=== PATIENT | male | born 1945 | race Caucasian/White ===

== ENCOUNTER 2018-08-08 19:32 | Inpatient (IN) ==
[2018-08-08] MEDS ORDERED: REGLAN IV ONE (19:38)
[2018-08-08] MEDS ORDERED: NS 1,000 ML IV ONE (19:38)
[2018-08-08 21:02] LABS: BASO# 0.05 X1000 (0.0-0.2); BASO% 0.4 % (0.0-0.8); EOS# 0.12 X1000 (0.0-0.7); HEMATOCRIT 42.3 % (42.0-52.0); HEMOGLOBIN 13.8 g/dL (14.0-18.0); IMM GRAN# 0.05 X1000 (0.0-0.04); IMM GRAN% 0.4 % (0.0-0.5); LYMPH# 1.11 X1000 (1.2-3.4); LYMPH% 9.4 % (20.5-51.1); MCH 26.7 PG (27-31); MCHC 32.6 g/dL (33-37); MONO% 7.6 % (1.7-9.3); MPV 10.3 FL (7.4-10.4); NEUT# 9.63 X1000 (1.4-6.5); NEUT% 81.2 % (42.2-75.2); PLT 292 X1000 (130-400); RBC 5.16 XMIL (4.7-6.1); RDW 14.7 % (11.5-14.5); WBC 11.86 X1000 (4.8-10.8)
--- NOTE | 2018-08-08 21:09 | Diag Imaging Result Doc PS360 ---
EXAM: CHEST-PORTABLE INDICATION: weak TECHNIQUE: One view COMPARISON: 01/30/2010 FINDINGS: The lungs are grossly clear. There is no discrete pleural fluid collection or pneumothorax. There has been interval placement of a left-sided pacemaker. The cardiomediastinal silhouette and central vasculature are grossly unremarkable, otherwise. IMPRESSION: No evidence of acute pathology by plain radiograph. Electronically signed by Aydin Pineda 08/08/2018 9:06 PM
[2018-08-08 21:26] LABS: AGAP 13; ALB/GLOB RATIO 1.3; ALBUMIN 4.2 g/dL (3.5-5.0); ALKALINE PHOSPHATASE 77 U/L (32-122); BUN 15 mg/dL (8-22); CALCIUM 9.3 mg/dL (8.8-10.2); CHLORIDE 102 mmol/L (98-107); CK PROFILE 98 U/L (24-204); COSMO 285; CREATININE 0.7 mg/dL (0.7-1.2); ESTIMATED GFR > 60; GLUCOSE 220 mg/dL (70-104); GOT 13 U/L (10-34); GPT 12 U/L (10-44); LIPASE 20 U/L (13-60); SODIUM 139 mmol/L (136-145); TCO2 24 mmol/L (25-35); TOTAL BILIRUBIN 0.52 mg/dL (0.20-1.00); TOTAL PROTEIN 7.4 g/dL (6.3-8.3)
[2018-08-08 21:29] LABS: URINE SOURCE CLEAN CATCH
[2018-08-08 21:43] LABS: BILIRUBIN URINE NEGATIVE (NEGATIVE); BLOOD URINE NEGATIVE (NEGATIVE); COLOR YELLOW; GLUCOSE URINE TRACE mg/dL (NEGATIVE); KETONE URINE 40 mg/dL (NEGATIVE); LEUKOCYTES URINE TRACE (NEGATIVE); NITRITE URINE NEGATIVE (NEGATIVE); PROTEIN URINE 30 mg/dL (NEGATIVE); SP GRAVITY URINE 1.028; TURBIDITY URINE CLEAR (CLEAR); UROBILINOGEN URINE NORMAL (NORMAL)
[2018-08-08 21:44] LABS: UR EPITHELIAL CELLS <10 /HPF (<10); URINE BACTERIA NEGATIVE /HPF; URINE RBC <10 /HPF (<10); URINE WBC <10 /HPF (<10)
--- NOTE | 2018-08-08 22:05 | HISTORY AND PHYSICAL ---
PRIMARY CARE PHYSICIAN: Dr. Vamshi Rutherford. CHIEF COMPLAINT: Profound weakness and near syncope. HISTORY OF PRESENT ILLNESS: A 72-year-old, white male, with a complicated past medical history, who presents for evaluation of above-mentioned symptoms. Current history of present illness began at approximately 5:30. At that time, patient was finishing mowing his yard. The patient states that he did not over exert himself as he was using a riding mower. The patient drank some water and some Gatorade. Upon arrival in his house, he developed visual abnormalities followed by a near syncopal episode. This was soon followed by abdominal pain with intractable nausea and vomiting. He noted numbness and tingling of bilateral upper extremities and bilateral lower extremities. Because of the severity of his symptoms, EMS was contacted. Upon their arrival, blood sugar was noted to be 143. Heart rate was noted to be 73. The patient was transferred to the hospital for full evaluation and management. Upon arrival, patient was noted to be hypothermic with a temperature of 95.0. He was ill appearing. He was aggressively volume resuscitated with IV fluids. IV Reglan was provided for nausea. Upon my arrival, patient states he continued to feel poorly, but did have improvement. He will be admitted to the hospital for full evaluation and management of a near syncopal episode with profound nausea and vomiting and weakness. Of note, patient has experienced urinary frequency and dysuria, but no hematuria or pyuria. He has had chills, but no fevers. He denies current cardiac symptoms including chest pains, palpitations, or shortness of breath. His last bowel movement was this morning and reported as normal. He denies hematochezia or melena. PAST MEDICAL HISTORY: 1. Abnormal electrocardiogram with longstanding right bundle branch block/bifascicular block, paroxysmal atrial fibrillation, and bradycardia. 2. Multiple actinic keratoses and a history of a basal cell carcinoma to the right face. 3. Status post appendectomy associated with diverticular rupture in 1994. 4. Diabetic right foot ulcer, originally diagnosed in 2008. He is status post surgical interventions in 2008 and 2013. He currently presents in a cast and is followed by Dr. King and Dr. Mckeon. 5. Type 2 diabetes. 6. History of diverticulitis with associated rupture requiring partial colon resection in 1992. 7. Hypertension. 8. History of external hemorrhoids. 9. Hyperlipidemia. 10. Long-term anticoagulation secondary to atrial fibrillation. 11. History of nephrolithiasis. 12. Obstructive sleep apnea. 13. Left-sided rotator cuff repair in 2002. 14. Bilateral osteoarthritis. 15. Paroxysmal atrial fibrillation. 16. Sick sinus syndrome status post dual-chamber pacemaker implantation in 2018. CURRENT MEDICATIONS: 1. Coreg 25 mg 1/2 tablet twice a day. 2. Januvia 100 mg daily. 3. Metformin 1000 mg 1/2 tablet 3 times daily. 4. Multaq 400 mg twice daily. 5. Pradaxa 150 mg twice daily. 6. Rosuvastatin 40 mg at bedtime. 7. Telmisartan 80 mg daily. ALLERGIES: 1. THE PATIENT STATES HE IS ALLERGIC TO ANDROGEL WHICH CAUSES URINARY RETENTION. 2. CODEINE WHICH CAUSES NAUSEA, VOMITING, AND DIARRHEA. 3. IBUPROFEN WHICH CAUSES SWELLING OF THE LIPS. 4. INVOKANA WHICH CAUSES GI UPSET. 5. MORPHINE WHICH CAUSES FACIAL SWELLING. SOCIAL HISTORY: Patient denies tobacco. He has approximately 1 drink of alcohol per week. He denies illicit drug use. 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 He enjoys fishing, hunting, working in the yard, and reading. He exercises intermittently. REVIEW OF SYSTEMS: A 12 point review of systems was performed. Pertinent positives and negatives are noted in history of present illness. PHYSICAL EXAMINATION: VITAL SIGNS: Temperature 95. Heart rate 63, respirations 18, blood pressure is 193/79. GENERAL: Ill-appearing. No acute distress. HEENT: Normocephalic, atraumatic. Pupils equal, round, reactive to light. Extraocular muscles intact. Sclerae anicteric. Sneads conjunctivae. Oral and nasopharynx clear without exudate. NECK: Supple. No lymphadenopathy. No thyromegaly. No bruits auscultated. CARDIOVASCULAR: Regular rate and rhythm. No significant murmurs, rubs, or gallops. PULMONARY: Clear to auscultation bilaterally. ABDOMEN: Soft, nontender, nondistended. Positive bowel sounds. EXTREMITIES: Moves all extremities well. No significant clubbing, cyanosis, or edema. NEUROLOGIC: Cranial nerves 2-12 grossly intact. Motor and sensory grossly intact. PSYCHOLOGIC: Examination is appropriate. LABORATORY DATA: White blood cell count 11.86, hemoglobin 13.8, hematocrit 42.3, platelet count 292,000. Sodium 139, potassium 5.0, chloride 102, bicarb 24, BUN 15, creatinine 0.7, glucose 220. Calcium 9.3, total bilirubin 0.52, total protein 7.4, albumin 4.2, alkaline phosphatase 77, AST 13, ALT 12. CK total 98. Troponin less than 0.010. Lipase 20. Urinalysis is pending at the time of admission. ASSESSMENT AND PLAN: A 72-year-old white male with a very complicated past medical history presents for evaluation of acute onset nausea, vomiting, and a near syncopal episode. Differential diagnosis is quite broad. In the setting of intractable abdominal pain, a transient small bowel obstruction associated with previous surgical interventions is to be considered. Additionally, urinary retention, urinary pathology will be evaluated. An enteritis is to be considered. Underlying arrhythmia also is on the differential. The patient will be admitted to the hospital for full evaluation and management of this condition. 1. Admit to General Medicine. 2. Intractable nausea and vomiting with associated abdominal discomfort-each of these has improved while in the emergency department. We will continue aggressive IV hydration. We will start patient on as needed IV Reglan. We will resume diet once able. 3. Profound weakness with a near syncopal episode-unfortunately, patient had a near syncopal episode associated with this event. The question is raised whether this was a vasovagal event associated with his abdominal discomfort or if this was a primary cardiac arrhythmia. Patient does have a prolonged cardiac history. We will follow patient on telemetry. We will continue IV fluids as described above. We will follow this closely. 4. History of diabetes with associated diabetic foot ulcer-we will continue patient's Januvia. We will hold metformin for now. We will cover patient with sliding scale insulin. We will convert patient to Bactrim and Augmentin to Zosyn therapy while hospitalized for his diabetic foot ulcer. 5. Urinary frequency-we will check a urinalysis. We will ask staff to check a postvoid residual. We will consider adding Flomax therapy while hospitalized. 6. Hypertension-patient's blood pressure is elevated at present time. This likely is reactive from his acute illness. We will continue his home regimen for now. 7. Paroxysmal atrial fibrillation-we will continue his home regimen. 8. Anticoagulation-we will continue patient on Pradaxa therapy. 9. Fluid, electrolytes, nutrition. We will monitor electrolytes. Normal saline at 75 mL an hour. Diabetic diet. 10. Prophylaxis. Patient will be continued on Pradaxa therapy. cc: Vamshi Rutherford MD
[2018-08-08] MEDS ORDERED: REGLAN IV PRN (22:55)
[2018-08-08] MEDS ORDERED: TYLENOL PO PRN (22:55)
[2018-08-08] MEDS: COREG PO SCH (23:44)
[2018-08-08] MEDS: NS 1,000 ML IV SCH (23:55)
[2018-08-08] MEDS: ZOSYN 3.375 GM in NS 50 ML IV SCH (23:56)
[2018-08-09] MEDS: MULTAQ PO SCH ×3 (00:07→21:10)
[2018-08-09] MEDS: PRADAXA PO SCH ×3 (00:08→21:10)
[2018-08-09] MEDS: ZOSYN 3.375 GM in NS 50 ML IV SCH ×5 (04:43→22:41)
[2018-08-09 05:51] LABS: BASO# 0.02 X1000 (0.0-0.2); BASO% 0.2 % (0.0-0.8); EOS# 0.04 X1000 (0.0-0.7); EOS% 0.4 % (0.0-10.0); HEMATOCRIT 38.2 % (42.0-52.0); HEMOGLOBIN 12.5 g/dL (14.0-18.0); IMM GRAN# 0.03 X1000 (0.0-0.04); IMM GRAN% 0.3 % (0.0-0.5); LYMPH# 2.01 X1000 (1.2-3.4); LYMPH% 19.6 % (20.5-51.1); MCH 27.2 PG (27-31); MCHC 32.7 g/dL (33-37); MCV 83.2 FL (81-99); MONO# 0.93 X1000 (0.11-0.59); MONO% 9.1 % (1.7-9.3); MPV 10.3 FL (7.4-10.4); NEUT% 70.4 % (42.2-75.2); PLT 268 X1000 (130-400); RBC 4.59 XMIL (4.7-6.1); RDW 14.8 % (11.5-14.5); WBC 10.23 X1000 (4.8-10.8)
[2018-08-09] MEDS: HUMALOG SUBQ SCH ×3 (06:07→21:10)
[2018-08-09 06:11] LABS: AGAP 11; ALBUMIN 3.3 g/dL (3.5-5.0); ALKALINE PHOSPHATASE 65 U/L (32-122); BUN 13 mg/dL (8-22); CALCIUM 8.5 mg/dL (8.8-10.2); CHLORIDE 104 mmol/L (98-107); COSMO 279; CREATININE 0.6 mg/dL (0.7-1.2); ESTIMATED GFR > 60; GLUCOSE 126 mg/dL (70-104); GOT 11 U/L (10-34); GPT 10 U/L (10-44); POTASSIUM 4.1 mmol/L (3.5-5.1); SODIUM 139 mmol/L (136-145); TCO2 24 mmol/L (25-35); TOTAL BILIRUBIN 0.49 mg/dL (0.20-1.00); TOTAL PROTEIN 6.6 g/dL (6.3-8.3)
--- NOTE | 2018-08-09 08:27 | EKG Report ---
Test Performed on : 08/08/2018 7:39:42 PM Test Reason : ED. NO EKG ORDER FOR MUSE Blood Pressure : / mmHG Vent. Rate : 079 BPM Atrial Rate : 078 BPM P-R Int : 000 ms QRS Dur : 144 ms QT Int : 440 ms P-R-T Axes : 000 -02 002 degrees QTc Int : 504 ms Wide QRS rhythm. Right bundle branch block Abnormal ECG When compared with ECG of 02-OCT-2012 00:47, Wide QRS rhythm. has replaced Sinus rhythm. Unconfirmed Result
[2018-08-09] MEDS: MICARDIS PO SCH (08:59)
[2018-08-09] MEDS: COREG PO SCH ×2 (08:59→21:10)
[2018-08-09] MEDS: JANUVIA PO SCH (08:59)
--- NOTE | 2018-08-09 12:50 | CONSULTATION ---
DATE OF CONSULTATION: 08/09/2018 IMPRESSION: 1. Episode of near syncope associated with upper abdominal discomfort, nausea and diaphoresis lasting at least an hour. ECG and serial cardiac enzymes benign. Consider possible vasovagal episode. However, patient has history of coronary atherosclerosis managed medically. Multiple risk factors for coronary artery disease, and episode of nonsustained ventricular tachycardia last month making reassessment of coronary disease important. 2. Atherosclerotic coronary disease. Last cardiac catheterization study in July of 2015 indicated mild left anterior descending coronary atherosclerosis, moderate stenosis in 2nd diagonal which was small vessel, moderate stenosis and small posterior lateral branch and mild coronary atherosclerosis in proximal right coronary. Left ventricular ejection fraction normal. Stress myocardial perfusion study early 2017-. 3. Atrial arrhythmias with atrial fibrillation and atypical flutter. Patient is status post previous ablation/flash pulmonary vein isolation procedure in 2009. He has had several cardioversions. He continues in atrial paced rhythm on Multaq, and as previous poor tolerance of amiodarone. 4. Sick sinus syndrome. Patient is status post dual-chamber pacemaker with [employer] device. 5. Valvular heart disease with mild aortic stenosis. Previous echocardiography last year. 6. Hypertensive cardiovascular disease with chronic diastolic dysfunction. 7. Diabetes mellitus. 8. Right foot infection with apparent associated osteomyelitis. This is an ongoing issue. 9. Obstructive sleep apnea. RECOMMENDATIONS: 1. Echocardiography. 2. Reassess coronary disease with Lexiscan myocardial perfusion imaging. HISTORY: This 72-year-old white male with past history of coronary atherosclerosis managed medically as outlined above, atrial arrhythmias including paroxysmal atrial fibrillation and atypical atrial flutter, sinus node dysfunction requiring permanent pacemaker with [employer] device, hypertensive cardiovascular disease with diastolic dysfunction, diabetes mellitus, obstructive sleep apnea, and ongoing right foot infection with apparent osteomyelitis. She was admitted yesterday evening after near syncopal episode. He has a cast on his right lower extremity and foot with an opening where he has a wound that is slowly healing. Apparently, he had osteomyelitis and so far he has avoided amputation. Yesterday afternoon around 3:00 in the afternoon, he mowed his yard with a riding mower. Following this, he did some blowing off of his property with a leaf blower. He indicates that he puts a garbage bag on his right distal lower extremity when he does this activity. He was fairly cool yesterday, and he does not feel like he overheated. He had some Gatorade afterwards, and on walking across the patio to his house he developed lightheadedness, nausea and upper abdominal discomfort, and some vomiting. Symptoms are rather persistent. There was no chest pain or palpitations. EMS was summoned and brought him to the hospital by ambulance. His symptoms had not totally abated by the time he arrived here, and improved with treatment in the emergency room. All in all, the symptoms lasted perhaps an hour. He has not had any chest pain. He relates that overall he has been feeling fairly well. ECG and serial cardiac enzymes have been benign. PAST MEDICAL HISTORY: 1. Atherosclerotic coronary disease as outlined above managed medically. 2. Paroxysmal atrial arrhythmias including paroxysmal atrial fibrillation and atypical atrial flutter. Patient is status post previous pulmonary vein isolation procedure. He has had several cardioversions. He continues in atrial paced rhythm. 3. Sinus node dysfunction requiring permanent pacemaker with [employer] device. 4. Hypertensive cardiovascular disease with left ventricular diastolic dysfunction. 5. Diabetes mellitus type 2. 6. Diabetic right foot ulcer with what sounds like associated osteomyelitis. 7. Diverticular disease of the colon. 8. Nephrolithiasis. 9. Obstructive sleep apnea PAST SURGICAL HISTORY: Partial colon resection for diverticulitis and associated rupture, left- sided rotator cuff repair, and permanent pacemaker. He is also status post several surgical interventions on his diabetic foot ulcer on the right foot. ALLERGIES: He is allergic or intolerant to ibuprofen, licorice, morphine and warfarin. The patient also relates that he had problems tolerating amiodarone in the past, and this was withdrawn. He relates associated abnormal liver function studies with amiodarone. MEDICATIONS: Current medications as listed. 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 He does not smoke. He drinks infrequent alcoholic beverage. FAMILY HISTORY: Negative for premature coronary disease. REVIEW OF SYSTEMS: Pulmonary: Noncontributory beyond history of present illness. Gastrointestinal: Noncontributory beyond history of present illness. Constitutional: Noncontributory beyond history of present illness. Remainder of review of systems noncontributory beyond history of present illness with 14 total systems reviewed. PHYSICAL EXAMINATION: General: This is a overweight older white male in no distress. Vital signs: Blood pressure 129/66, heart rate 64, and oxygen saturation 98% on room air. HEENT: Extraocular movements intact. Mucous membranes are moist. Neck: Supple without jugular venous distention. No carotid bruits. Chest: Clear to auscultation bilaterally. Cardiac: Exam reveals a regular rate and rhythm with a grade 1-2/6 systolic murmur at the left ventricular apex. No gallop could be appreciated. Abdomen: Soft and nontender. Bowel sounds are normal. Extremities: Without edema. Neurologic: Exam reveals him to be alert and fully oriented. Speech is fluent. Moves all 4 extremities equally well. Skin: Warm and dry. Psychiatric: Reveals mood to be appropriate. PERTINENT DATA: Twelve lead EKG demonstrates sinus rhythm atrial paced rhythm and right bundle branch block. Twelve lead EKG demonstrates what appears to be atrial paced rhythm and right bundle branch block. LABORATORY DATA: Includes white blood cell count 10.23, hematocrit 38.2, hemoglobin 12.5, and platelet count 268,000. Sodium 139, potassium 4.1, chloride 104, carbon dioxide 24, BUN 13, and creatinine 0.6. Initial troponin less than 0.01. Followup troponin pending. CPK 98. Interrogation of pacemaker demonstrates no arrhythmias with yesterday's event. However, patient did manifest an episode of nonsustained ventricular tachycardia in the last 30 days. cc: MD Vamshi Salas MD
[2018-08-09] MEDS: NS 1,000 ML IV SCH (16:08)
--- NOTE | 2018-08-09 16:38 | ECHO REPORT ---
ORDER DATE: 08/09/2018 INTERPRETING PHYSICIAN: Dr. Mcfarland CLINICAL INDICATIONS: Near syncope. Pacemaker. M-MODE MEASUREMENTS: Left ventricle end diastole: 6.7 cm. Left ventricle end systole: 5.3 cm. Posterior wall: 0.8 cm. Interventricular septum: 0.8 cm. Left atrium: 3.7 cm. Aortic diameter: 3.3 cm. SUMMARY OF 2-DIMENSIONAL IMAGIN. The left ventricular systolic function appears to be normal, estimated at 55%. No wall motion abnormality noted. 2. The right ventricle appears to be normal. 3. The left atrium is moderately dilated. 4. The tricuspid valve shows mild degree of regurgitation. 5. Pulmonary pressure is estimated at 27 mmHg. The pulmonic valve is unremarkable. 6. The mitral valve looks grossly normal. Color flow mapping indicates mild degree of regurgitation. 7. Pulsed wave Doppler of mitral inflow shows single filling wave. The patient is in atrial fibrillation. 8. Tissue Doppler of septal and lateral mitral annulus shows normal velocity of the annulus at about 6 1/2 cm. 9. Diastolic function cannot be properly evaluated in this case because of the patient seemingly being in atrial fibrillation. 10.The aortic valve is calcified and it shows restricted opening. Maximum gradient across the valve is 25 mmHg, mean gradient is 13 mmHg. That would be consistent with a mild degree of aortic stenosis. 11.There is no pericardial effusion, no mass, and no thrombus. 12.There is questionable hypokinesis of the basal portion of the inferior wall. Clinical correlation is recommended. cc: MD Dao Garcia MD Scott A. Matthews, MD
[2018-08-09] MEDS ORDERED: CRESTOR PO SCH (21:00)
[2018-08-09] MEDS ORDERED: NS 1,000 ML IV SCH (22:10)
--- NOTE | 2018-08-09 22:28 | PROGRESS NOTE ---
DATE: 08/09/2018 SUBJECTIVE: This morning, upon my arrival, the patient states he continued to demonstrate improvement. He was, however, not back to his baseline. Because of his near syncopal episode and significant cardiac history, Cardiology was consulted. An echocardiogram was performed. Resting images were performed. Stress images are scheduled for tomorrow. This evening, upon my arrival, the patient states he had experienced further improvement. His abdominal discomfort has resolved. He has experienced no further episodes of nausea and vomiting. He is tolerating p.o. He continues to have some weakness; however, this has improved from this morning. OBJECTIVE: T-max 98.2 degrees, heart rate 63 to 98, respirations 14 to 32, blood pressure 106 to 228/62 to 102.General: Well nourished, well developed, in no acute distress. Cardiovascular: Irregularly irregular. No significant murmurs, rubs, or gallops. Pulmonary: Clear to auscultation bilaterally. Abdomen: Soft, nontender, nondistended. Positive bowel sounds. Extremities: Moves all extremities well. No significant clubbing, cyanosis, or edema. Dermatologic: Evaluation reveals no evidence of rash. LABORATORY DATA: White blood cell count 10.23, hemoglobin 12.5, hematocrit 38.2, platelet counts 268,000. Sodium 138, potassium 4.1 chloride 104, bicarb 24, BUN 13, creatinine 0.6, glucose 126, calcium 8.5. Total bilirubin 0.49. Total protein 6.6, albumin 3.3, alkaline phosphatase 65, AST 11, ALT 10. ASSESSMENT AND PLAN: 1. Intractable nausea and vomiting with associated abdominal discomfort - As above, the patient has achieved improvement. The question is raised as to the etiology. We will rule out cardiac etiology with stress testing in the morning. Symptoms have improved considerably. We will remain aware that this may be secondary to a vasovagal event in the setting of taking antibiotics and a transient small bowel obstruction in the setting of previous abdominal surgery. For now, we will continue supportive care. 2. Profound weakness with a near syncopal episode - Telemetry has demonstrated only rate controlled atrial fibrillation. As above, stress testing is scheduled. For now, we will continue IV fluids. We will encourage activity. 3. Diabetes with associated diabetic foot ulcer - We will continue Januvia therapy. We will treat patient's ulcer with the Zosyn therapy while hospitalized. 4. Urinary frequency - Urinalysis returned negative. Postvoid residual returned minimal. Symptoms have improved with treatments as above. 5. Hypertension - The patient's blood pressure is controlled on his home regimen. 6. Paroxysmal atrial fibrillation - The patient does appear to be in atrial fibrillation, but rate controlled. We will remain aware. 7. Anticoagulation - We will continue Pradaxa therapy. 8. Disposition - At this point, patient continues to require prison care in a hospital setting. We will plan discharge home once appropriate. cc: Vamshi Rutherford MD
[2018-08-10] MEDS: ZOSYN 3.375 GM in NS 50 ML IV SCH ×3 (04:09→17:07)
[2018-08-10] MEDS: HUMALOG SUBQ SCH ×3 (06:07→16:17)
[2018-08-10] MEDS ORDERED: LEXISCAN ONE (07:33)
[2018-08-10] MEDS: MULTAQ PO SCH (10:18)
[2018-08-10] MEDS: JANUVIA PO SCH (10:18)
[2018-08-10] MEDS: MICARDIS PO SCH (10:18)
[2018-08-10] MEDS: PRADAXA PO SCH (10:19)
[2018-08-10] MEDS: COREG PO SCH (10:19)
--- NOTE | 2018-08-10 13:40 | Diag Imaging Result Document ---
PROCEDURE NAME: MYOCARDIAL PERF SCAN, STR/REST - 08/09/2018 SUMMARY: The patient underwent resting sestamibi study on 08/09/2018. Patient was administered 35.9 mCi of technetium-99m sestamibi, after which resting cardiac images were obtained. The patient underwent Lexiscan sestamibi study on 08/10/2018. The patient was administered Lexiscan 0.4 mg intravenously after which the heart rate went from 63 beats per minute to 70 beats per minute. The blood pressure went from 119/77 to 92/65. With Lexiscan, the patient denied chest discomfort. Following the administration of Lexiscan, the patient was administered 36.2 mCi of technetium 99-m sestamibi after which gated stress cardiac images were obtained. Baseline ECG demonstrated sinus rhythm and right bundle branch block. With Lexiscan, there were no diagnostic ST-segment changes. SPECT images were reconstructed in the short, horizontal, vertical long axis. Review of these images demonstrated mild to moderate diminished activity in the inferior wall on stress images which appears similar on resting images. Gated images demonstrate calculated left ventricular ejection fraction of 61% with symmetrical wall motion/thickening. CONCLUSIONS: 1. Adequate response to Lexiscan. 2. Clinically negative for chest pain. 3. Electrocardiographically negative for Lexiscan-induced myocardial ischemia. 4. Lexiscan sestamibi images demonstrate fixed mild to moderately reduced activity in the inferior wall with corresponding preserved regional wall motion most suggestive of soft tissue/diaphragm attenuation artifact. There is no convincing scintigraphic evidence of inducible myocardial ischemia. Normal left ventricular systolic function demonstrated. cc: Dao Simpson MD
--- NOTE | 2018-08-10 14:59 | PROGRESS NOTE ---
DATE: 08/10/2018 SUBJECTIVE: The patient continues without chest discomfort or shortness of breath. There have been no palpitations. He continues in sinus rhythm. OBJECTIVE: Vital Signs: Blood pressure 153/90, heart rate 63, oxygen saturation 99% on room air. Neck: There is no significant jugular venous distention. Chest: Clear to auscultation. Cardiac: Regular rate and rhythm without appreciable murmur or gallop. Extremities: Without edema. IMAGING AND LABORATORY DATA: Laboratory data includes initial troponin less than 0.01, followup troponin less than 0.01. Lexiscan sestamibi study demonstrates no evidence of inducible myocardial ischemia. Left ventricular ejection fraction normal. IMPRESSION: 1. Recent near-syncope with associated abdominal discomfort, nausea, and diaphoresis. Cardiac evaluation unrevealing. Suspect more likely vasovagal episode related to abdominal discomfort. 2. Atherosclerotic coronary disease. 3. Atrial arrhythmias. The patient continues in sinus rhythm. 4. Sinus node dysfunction. The patient is status post dual-chamber pacemaker. 5. Hypertensive cardiovascular disease. 6. Mild aortic stenosis. RECOMMENDATIONS: 1. Continue medical management from a cardiovascular standpoint. 2. Reasonable for the patient to be discharged to home, and follow up with his regular telex operator in [place]. cc: MD Vamshi Salas MD
[2018-08-10 15:49] VITALS: BP 126/77
--- NOTE | 2018-08-11 15:24 | DISCHARGE SUMMARY ---
ADMISSION DATE: 08/08/2018 DISCHARGE DATE: 08/10/2018 ADMISSION DIAGNOSIS: 1. Profound weakness. 2. Near syncope. DISCHARGE DIAGNOSES: 1. Intractable nausea and vomiting with associated abdominal discomfort, etiology queried. 2. Profound weakness with a near syncopal episode, improving. 3. Type 2 diabetes, with diabetic foot ulcer, present on arrival. 4. Urinary frequency, present on arrival. 5. Hypertension, present on arrival. 6. Paroxysmal atrial fibrillation, present on arrival. 7. Anticoagulation, present on arrival. CONSULTATIONS: Dr. Simpson with Cardiology was consulted for further evaluation and management of a near syncopal episode. PROCEDURES: 1. Chest x-ray was performed on 03/10/2018 which returned negative. 2. Echocardiogram was performed on 03/10/2018, which revealed estimated ejection fraction of 55% with no wall motion abnormality noted. Left atrium is moderately dilated. Tricuspid valve shows a mild degree of regurgitation. Pulmonary pressure estimated at 27 mmHg. Mitral valve looked grossly normal with mild degree of regurgitation. Patient is in atrial fibrillation. Aortic valve is calcified and it shows restricted opening consistent with mild degree of aortic stenosis. Questionable hypokinesis of the basal portion of the inferior wall. 3. Myocardial perfusion scan on 08/09/2018 to 08/10/2018 revealed adequate response to Lexiscan. Clinically negative for chest pain. Electrocardiographically negative for Lexiscan induced myocardial ischemia. Soft tissue/diaphragmatic attenuation artifact with no convincing scintigraphic evidence of inducible myocardial ischemia. Pacemaker interrogation revealed no evidence of associated arrhythmia. HISTORY AND PHYSICAL EXAMINATION: See admit note. PHYSICAL EXAMINATION PRIOR TO DISCHARGE: Vital Signs: Temperature 97.7 degrees, heart rate 62, respirations 16, blood pressure is 126/77. General: Well nourished, well developed, no acute distress. Cardiovascular: Regular rate and rhythm. No significant murmurs, rubs, or gallops. Pulmonary: Clear to auscultation bilaterally. Abdomen: Soft, nontender, nondistended. Positive bowel sounds. Extremities: Moves all extremities well. No significant clubbing, cyanosis, or edema. Dermatologic: Reveals a cast to the right lower extremity with a window revealing a plantar ulceration of the right foot without evidence of purulent discharge or erythema. LABORATORY DATA: Prior to discharge none. HOSPITAL COURSE: Patient was admitted as per history and physical examination. Hospital course per condition is as follows. 1. Intractable nausea and vomiting with associated abdominal discomfort. Upon admission, patient was noted to have intractable nausea and vomiting. Patient was treated with IV fluids and IV Reglan while in the emergency department. The patient's condition quickly improved. Within the first several hours of hospitalization, nausea and vomiting resolved. Abdominal discomfort essentially resolved. Throughout hospitalization, patient continue to do well with supportive care. He was tolerating p.o. On the day of discharge, patient complained of mild, intermittent epigastric pain when eating. Otherwise, he denied symptoms. He will be discharged home with Pepcid for the next 1 to 2 weeks then as needed. We will plan an EGD and colonoscopy in the near future. We will also consider abdominal ultrasound as an outpatient. 2. Profound weakness with a near syncopal episode. Upon admission, I was quite concerned this could be secondary to arrhythmia. The pacemaker interrogation proved this not to be the case. At this point, the etiology of the weakness and near syncopal episode is queried. A vasovagal event in the setting of abdominal symptoms while taking antibiotics is high on the differential. Also of consideration is that of adhesive disease precipitating a transient small-bowel obstruction or torsion. The patient has experienced no further episodes of near syncope while hospitalized. Energy level is slowly improving. We will continue to follow this as an outpatient as well. 3. Positive blood culture. Just prior to discharge home, I was contacted regarding a gram positive mariana in 1 of the aerobic bottles. I discussed this with the lab. As patient is completely asymptomatic and feeling much improved, I do not feel keeping him in the hospital awaiting culture resorts is appropriate. We will follow up culture and determine if further intervention is necessary. At this point, I suspect that this will be a contaminant. 4. Diabetes with associated diabetic foot ulcer. Upon admission, patient was being treated with Augmentin XR and Bactrim therapy. These were held in exchange for Zosyn while hospitalized. At time of discharge, the patient's blood sugars are controlled. We will continue with current regimen as well as treatment for his diabetic foot ulcer. 5. Urinary frequency. While hospitalized, patient complained of some urinary frequency. Urinalysis returned negative. This likely is secondary to prostatic etiology. We will consider adding Flomax as an outpatient. 6. Hypertension. The patient's blood pressure remained controlled on his home regimen. We will follow this as an outpatient. 7. Paroxysmal atrial fibrillation. Patient remained rate controlled. We will continue his current regimen. 8. Anticoagulation. We will continue patient on Pradaxa therapy. DISCHARGE CONDITION: Good. DISPOSITION: Discharge to home. MEDICATIONS: 1. Multaq 400 mg twice daily. 2. Tylenol 650 mg every 4 hours as needed. 3. Crestor 40 mg at bedtime. 4. Pepcid 20 mg daily. 5. Micardis 80 mg daily. 6. Pradaxa 150 mg twice daily. 7. Januvia 100 mg daily. 8. Bactrim DS twice daily. 9. Carvedilol 12.5 mg twice daily. 10. Augmentin XR 2 tablets twice daily. 11. Metformin 1000 mg 1/2 tablet twice daily. 12. Crestor 40 mg at bedtime. FOLLOWUP: The patient is to follow with me in approximately 1 week. At that time, we will follow up patient's blood cultures over the weekend. cc: Vamshi Rutherford MD
--- NOTE | 2018-08-12 06:04 | PROVIDER DOCUMENTATION ---
This chart was entered by Dahiana Pineda Scribe, acting as scribe for Jack Carrera MD. HPI-General Adult - General Stated Complaint: weakness Time Seen by Provider: 08/08/18 19:47 Source: patient Allergies/Adverse Reactions: Patient Allergies Allergy/AdvReac Type Severity Reaction Status Date / Time ibuprofen Allergy Severe ANAPHYLAXIS Verified 09/29/12 18:52 licorice Allergy Severe ANAPHYLAXIS Verified 08/08/18 23:58 morphine Allergy Severe blisters Verified 08/08/18 23:58 warfarin [From Coumadin] Allergy Unknown Verified 08/08/18 23:58 Home Medications: Home Medication List Medication Instructions Recorded Confirmed Last Taken Type Dabigatran Etexilate Mesylate 150 mg PO BID 10/01/12 08/08/18 09/28/12 History [Pradaxa] Telmisartan [Micardis] 80 mg PO DAILY 10/01/12 08/08/18 09/28/12 History Carvedilol [Coreg] 12.5 mg PO BID 08/08/18 08/08/18 Unknown History Sitagliptin Phosphate [Januvia] 100 mg PO DAILY 08/08/18 08/08/18 Unknown Hist ory Sulfamethoxazole/Trimethoprim 1,000 mg PO BID 08/08/18 08/08/18 Unknown History [Bactrim Ds Tablet] Amoxicillin/K Clavulanate E.r. 2 tab PO BID 08/09/18 08/09/18 Unknown History [Augmentin Xr] Acetaminophen [Tylenol] 650 mg PO Q4H PRN PRN tab 08/10/18 Unknown Rx Dronedarone [Multaq] 400 mg PO BID tab 08/10/18 Unknown Rx Famotidine [Pepcid] 20 mg PO DAILY #1 tab 08/10/18 Unknown Rx Metformin HCl [Glucophage] 0.5 tab PO BID #0 08/10/18 08/08/18 09/28/12 Rx ROSUVAstatin [Crestor] 40 mg PO QHS tab 08/10/18 Unknown Rx Rosuvastatin Calcium [Crestor] 40 mg PO QHS #0 08/10/18 08/08/18 Unknown Rx - History of Present Illness -Gen Adult Nature of Presenting Problems: 72 yom c/o pt arrived via [facility]. pt sts around [id number] was doing yardwork, riding on lawnmower for 2 hours and became n/v all of a sudden. pt had felt good all day, went to dr. rutherford office earlier. pt has cast on foot from infection sx. pt is borderline dm, has pacemaker. denies kidney problems, fever, and chills. pt diaphoretic in room. 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 dr. rutherford saw pt and pt sts he had abd pain onset after vomiting. pt "seeing spots," and sts he ate 2 pieces of watermelon and peanut butter jelly sandwich for lunch. pt has an elv bp in er. Review of Systems - Adult - REVIEW OF SYSTEMS - ADULT Constitutional: reports: no symptoms reported. denies: chills, fever Eyes: reports: no symptoms reported Ears, Nose, Mouth & Throat: reports: no symptoms reported Cardiovascular: reports: no symptoms reported Respiratory: reports: no symptoms reported Gastrointestinal: reports: see HPI, nausea, vomiting Genitourinary: reports: no symptoms reported Musculoskeletal: reports: no symptoms reported Integumentary: reports: no symptoms reported Neurological: reports: no symptoms reported Psychiatric: reports: no symptoms reported Endocrine: reports: no symptoms reported Hematologic/Lymphatic: reports: no symptoms reported Allergic/Immunologic: reports: no symptoms reported All Other Systems: Reviewed and Negative Past History - Adult - PAST MEDICAL HISTORY-ADULT Review of Records: reports: Old Records Reviewed, Nursing Assessment Review, Medications Reviewed, Social history reviewed & non-contributory. Major Childhood Illnesses: reports: denies history Cardiovascular: reports: HTN, pacemaker Respiratory: reports: COPD Gastrointestinal: reports: denies history Obstetrical/Gynecological: reports: denies history Genitourinary: reports: denies history Musculoskeletal: reports: denies history Neurological: reports: denies history Endocrine/Immune: reports: Diabetes (borderline) Other Conditions: reports: denies history - IMMUNIZATION STATUS Childhood Immunizations: See Nurse Assessment Flu Vaccine: See Nurse Assessment - FAMILY HISTORY Family History: reviewed, not pertinent - SOCIAL HISTORY Smoking: non-smoker Substance Use: alcohol Alcohol Use Frequency: occasionally Physical Exam-General - PHYSICAL EXAM-ADULT Initial Vital Signs Reviewed: Yes - CONSTITUTIONAL General Appearance: alert, mild distress, obese. negative: lethargic, obtunded, combative - EYES Eyes: PERRL/EOMI, pink conjunctivae - HEAD, EARS, NOSE, MOUTH & THROAT HENMT: normocephalic/atraumatic, moist mucous membranes, normal ENT inspection - NECK Neck: non-tender, full range of motion, supple - RESPIRATORY Respiratory: chest non-tender, lungs clear, normal breath sounds - CARDIOVASCULAR Cardiovascular: normal peripheral pulses, regular rate, rhythm - GASTROINTESTINAL (ABDOMEN) Abdominal Exam: normal bowel sounds, non tender, soft, no organomegaly, no pulsatile mass - LYMPHATIC Lymphatic: no adenopathy - MUSCULOSKELETAL Back Exam: normal inspection, no CVA tenderness, no vertebral tenderness Extremity: normal range of motion, non-tender, normal inspection Peripheral Pulses: radial (R): 2+, radial (L): 2+ - SKIN Integumentary: normal color, normal turgor, warm/dry, diaphoresis. negative: rash, swelling, tenderness - NEUROLOGIC Neurologic: grossly normal, no motor/sensory deficits - PSYCHIATRIC Psych/Mental Status: normal mood/affect, normal thought content, normal thought process, oriented x 3 Progress - PLAN OF CARE/RESULTS Progress/Plan/Lab Results: Orders Category Date Time Status CHEST-PORTABLE [RAD] Stat Exams 08/08/18 19:54 Ordered CBC WITH ELECTRONIC DIFF [HEME] Stat Lab 08/08/18 19:54 Uncollected CK PROFILE [SP CHEM] Stat Lab 08/08/18 19:55 Uncollected COMPREHENSIVE METABOLIC PANEL [CHEM] Stat Lab 08/08/18 19:54 Uncollected LIPASE [CHEM] Stat Lab 08/08/18 19:54 Uncollected TROPONIN T Stat Lab 08/08/18 19:54 Uncollected URINALYSIS W/POSS RFLX CULT [URINALYSIS] Stat Lab 08/08/18 19:55 Uncollected 0.9% Sodium Chloride Inj [Ns] 1,000 ml Med 08/08/18 19:38 Active IV 999 mls/hr Metoclopramide [Reglan] Med 08/08/18 19:38 Discontinued 10 mg IV NOW ONE Result Diagrams: 08/09/18 04:54 08/09/18 04:54 - REASSESSMENT Reassessment #1 Time Reassessed: 20:13 Status: other (Dr. Carrera discussed pt w/Dr. rutherford and Dr. Rutherford will come see pt in er.) - EKG 1 Time of EKG reading by physician:: 19:39 EKG Read and Signed by:: Jack Carrera EKG Interpretation (*Must complete 3 of following elements*): Abnormal Rate: 79 Rhythm: Wide QRS rhythm QRS: RBB ST Wave: normal - XRAY 1 XRAY Study: Chest (EXAM: CHEST-PORTABLE INDICATION: weak TECHNIQUE: One view COMPARISON: 01/30/2010 FINDINGS: The lungs are grossly clear. There is no discrete pleural fluid collection or pneumothorax. There has been interval placement of a left-sided pacemaker. The cardiomediastinal silhouette and central vasculature are grossly unremarkable, otherwise. IMPRESSION: No garry dence of acute pathology by plain radiograph. Electronically signed by Aydin Pineda 08/08/2018 9:06 PM) Impression: Normal Departure - Departure Date of Disposition Decision: 08/08/18 Time of Disposition Decision: 22:55 DIAGNOSIS: Near syncope, Weakness Disposition: ADMITTED INPATIENT 09 Certified Medical Emergency: Emergent Condition: Good - Critical Care Note This patient required my direct & personal management of CC.: No Attestation - Physician/ PAUL Attestation The physician spent face to face time with patient:: Yes Advanced Practice Provider documentation review:: Supervising physician onsite and consulted in the evaluation and care of this patient. The physician did have a face to face encounter with the patient. This chart was documented by the indicated scribe, (Dahiana Pineda, Jani) and accurately reflects the services I performed and decisions made by me, Jack Carrera MD, as attested by the provider's signature.
== END 2018-08-10 19:15 | disposition home or self-care (01) | DRG 312 ==
LOC: SUPCPDRO → ED 19:32 → 3S 22:28
PROVIDERS: ADMIT Internal Medicine; ATTEND Internal Medicine
CPT/HCPCS: 71010; 71045; 78452; 80053; 81001; 82550; 82948; 83690; 83735; 84484; 85025; 87040; 87088; 93005; 93017; 93306; 94761; 94799; A9270; A9500; J1815; J2543; J2765; J2785; J7030; XXXXX